=== PATIENT | male | born 1980 | race Caucasian/White ===

== ENCOUNTER → 2017-08-21 | Outpatient (CLI) | payer BC, OTHER ==
[~2017-08-21] MED LIST: CYCL10TA45 PO; DEXL60CA5 PO; HYDR-757 PO; HYDR1CAP2 PO; HYDR1TAB PO; IBP600T1; NAPR550T PO; ONDAN4ODT PO; PANT40TA2 PO; SUCR1TAB PO
--- NOTE | 2017-08-21 07:45 | Diagnostic Imaging Report ---
PROCEDURE: US Gallbladder. TECHNIQUE: Multiple real-time grayscale images were obtained over the right upper quadrant in various projections. INDICATION: Right upper quadrant pain. FINDINGS: Liver appears normal. Bile ducts are not dilated. Gallbladder appears normal. Common bile duct measures 4 mm. Portal and hepatic vein are patent. Pancreas is not well seen. Right kidney is visualized and normal. There is no ascites. IMPRESSION: Normal right upper quadrant ultrasound. Dictated by: Dictated on workstation # [id number]
== END ==
LOC: RAD 06:54
PROVIDERS: ATTEND Nurse Practitioner Family
DX: R10.11 Right upper quadrant pain (principal)
CPT/HCPCS: 76705

== ENCOUNTER → 2017-08-30 | Outpatient (CLI) | payer OTHER ==
[~2017-08-30] MED LIST changes: +IOHEXOL 350 MG/ML 100 ML (OMNIPAQUE 350) VIAL IV ONE; +NS 100 ML (IVPB) BAG IV ONE
[2017-08-30 15:33] LABS: ALANINE AMINOTRANSFERASE 43 U/L (0-55); ALBUMIN 4.2 GM/DL (3.2-4.5); ANION GAP 9 MMOL/L (5-14); ASPARTATE AMINO TRANSFERASE 28 U/L (5-34); BILIRUBIN,TOTAL 0.7 MG/DL (0.1-1.0); BLOOD UREA NITROGEN 9 MG/DL (7-18); BUN/CREATININE RATIO 10; CALCIUM 8.8 MG/DL (8.5-10.1); CARBON DIOXIDE 26 MMOL/L (21-32); CHLORIDE 104 MMOL/L (98-107); CREATININE SERUM 0.89 MG/DL (0.60-1.30); GFR ESTIMATED > 60; GLUCOSE 148 MG/DL (70-105); POTASSIUM 3.9 MMOL/L (3.6-5.0); SODIUM 139 MMOL/L (135-145); TOTAL PROTEIN 7.1 GM/DL (6.4-8.2)
--- NOTE | 2017-08-30 15:51 | Diagnostic Imaging Report ---
PROCEDURE: CT abdomen and pelvis with contrast, rule out appendicitis. TECHNIQUE: Multiple contiguous axial images were obtained through the abdomen and pelvis after the administration of intravenous contrast. INDICATION: Right-sided abdominal pain. FINDINGS: The appendix is well visualized. There is a long appendix present on the right which does extend from the right lower quadrant medially and inferiorly into the pelvis. There is no evidence of appendicolith. Appendix is not edematous. There is no periappendiceal edema. There are no abscesses. There is no free air or free fluid. The colon shows normal stool and gas pattern throughout. The stomach and small bowel are not distended. There is no small bowel wall thickening. Bladder appears normal. There are no pelvic masses. The ureters are not dilated. The kidneys show symmetrical nephrogram effect without hydronephrosis. There are no renal calculi or masses. No perinephric edema. The adrenal glands are normal. The liver appears normal. Gallbladder and bile ducts are normal. The pancreas is normal. The spleen is normal. The lung bases are clear. There is good opacification of the aorta and abdominal vessels which are normal. IMPRESSION: 1. Patient does show a very long wandering appendix though the appendix appears normal throughout its course. 2. No evidence of inflammatory bowel changes. 3. Kidneys, ureter and bladder appear normal. Dictated by: Dictated on workstation # [id number]
== END ==
LOC: RAD 14:40
PROVIDERS: ATTEND Nurse Practitioner Family
DX: R10.11 Right upper quadrant pain (principal); R10.12 Left upper quadrant pain
CPT/HCPCS: 36415; 74177; 80053

== ENCOUNTER → 2017-09-16 | Outpatient (CLI) | payer OTHER ==
[~2017-09-16] MED LIST changes: +CATHETER FLUSH 10 ML SYR IV PRN; -IOHEXOL 350 MG/ML 100 ML (OMNIPAQUE 350) VIAL IV ONE; -NS 100 ML (IVPB) BAG IV ONE
--- NOTE | 2017-09-16 12:12 | Diagnostic Imaging Report ---
EXAMINATION: HIDA with EF measurements Indication: Abdominal pain TECHNIQUE: After the intravenous administration of 5.2 mCi of Tc 99m Choletec, imaging over the abdomen was obtained. This was followed by administration of Ensure orally to stimulate intrinsic CCK secretion, followed by continued imaging with ejection fraction measured. FINDINGS: There is homogeneous uptake in the liver with prompt bile duct and gallbladder filling seen. Bowel activity is seen at 30 minutes. Based on further imaging and gallbladder area of interest activity measurements after the administration of Ensure, the gallbladder ejection fraction is estimated at 87%. IMPRESSION: 1. Normal hepatobiliary uptake and Gallbladder filling. 2. Normal gallbladder ejection fraction. Dictated by: Dictated on workstation # [id number]
== END ==
LOC: CARD 09:32
PROVIDERS: ATTEND Surgery
DX: R10.11 Right upper quadrant pain (principal)
CPT/HCPCS: 78227

== ENCOUNTER 2017-09-20 10:11 | Outpatient (CLI) | payer OTHER ==
[~2017-09-20] VITALS: Ht 188 cm; Wt 90.7 kg
[~2017-09-20 10:11] MED LIST changes: -CATHETER FLUSH 10 ML SYR IV PRN
== END 2017-09-20 13:38 ==
LOC: PREOP 10:11
PROVIDERS: ATTEND Surgery
DX: Z01.818 Encounter for other preprocedural examination (principal); K36 Other appendicitis

== ENCOUNTER 2017-09-26 09:46 | Day surgery (SDC) | payer OTHER ==
[~2017-09-26] VITALS: Ht 188 cm; Wt 90.7 kg
--- OUTSIDE RECORDS SUMMARY | 2017-09-26 09:49 | XMS REPORT | Clinical Summary ---
Author Author [facility] Organization [facility] Address Unknown Phone Unavailable Care Team Providers Care Transit Planning Manager Name Role Phone PCP Unavailable Source Comments Some departments are not documenting in the electronic medical record. If you do not see the information that you expected, contact Release of Information in the Health Information Management department at [phone] for further assistance in locating additional records.[facility] Allergies Active Allergy Reactions Severity Noted Date Comments Codeine NAUSEA AND VOMITING 08/05/2013 Current Medications Prescription Sig. Disp. Refills Start End Date Status Date DEXLANSOPRAZOLE (DEXILANT Take by mouth daily. Active PO) sucralfate (CARAFATE) 1 Take 1 g by mouth every 6 Active gram tablet hours. 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 08/05/2013 Overview: Diagnosed november 2011 Family History Medical History Relation Name Comments GI Cancer Paternal Aunt GI Cancer Paternal Grandmother Relation Name Status Comments Paternal Aunt Paternal Grandmother Social History Tobacco Use Types Packs/Day Years Used Date Current Some Day Smoker Smokeless Tobacco: Chew Current User Alcohol Use Drinks/Week oz/Week Comments Yes Sex Assigned at Date Recorded Not on file Last Filed Vital Signs Vital Sign Reading Time Taken Blood Pressure 131/92 08/05/2013 9:54 AM [facility] Pulse 75 08/05/2013 9:54 AM [facility] Temperature 36.2 C (97.2 F) 08/05/2013 9:54 AM [facility] Respiratory Rate 17 08/05/2013 9:54 AM [facility] Oxygen Saturation - - Inhaled Oxygen - - Concentration Weight 90.7 kg (200 lb) 08/05/2013 9:54 AM [facility] Height 188 cm (6' 2") 08/05/2013 9:54 AM [facility] Body Mass Index 25.68 08/05/2013 9:54 AM [facility] Plan of Treatment Health Maintenance Due Date Last Done Comments PHYSICAL (COMPREHENSIVE) 1986 EXAM PERTUSSIS VACCINE 1990 TETANUS VACCINE 1996 INFLUENZA VACCINE 04/30/2017 Results Not on filefrom Last 3 Months
--- OUTSIDE RECORDS SUMMARY | 2017-09-26 09:50 | XMS REPORT | Continuity of Care Document ---
Author Author [facility] Organization [facility] Address Unknown Phone Unavailable Allergies Active Description Code Type Severity Reaction Onset Reported/Identified Relationship to Patient Clinical Status Yes codeine [id number] Drug Allergy Mild N/A 07/11/2009 Yes No Known Drug Allergies [id number] Drug Allergy Unknown N/A 02/08/2016 Medications There is no data. Problems Date Dx Coded Attending Type Code Diagnosis Diagnosed By 03/19/2011 Ot 845.10 SPRAIN OF FOOT NOS 03/19/2011 Ot 959.7 LOWER LEG INJURY NOS 03/19/2011 Ot E000.8 OTHER EXTERNAL CAUSE STATUS 03/19/2011 Ot E001.0 ACTIVITIES INVOLVING WALKING, MARCHING A 03/19/2011 Ot E849.0 ACCIDENT IN HOME 03/19/2011 Ot E927.0 OVEREXERTION FROM SUDDEN STRENUOUS MOVEM 12/05/2012 Ot 530.11 REFLUX ESOPHAGITIS 12/05/2012 Ot 535.40 OTH SPECIFIED GASTRITIS,W/O MENTION OF H 12/05/2012 Ot 553.3 DIAPHRAGMATIC HERNIA 01/18/2013 Ot 558.9 NONINF GASTROENTERIT NEC 01/18/2013 Ot 787.91 DIARRHEA 11/08/2013 [facility] NURSE Ot 724.5 BACKACHE NOS 11/08/2013 [facility] NURSE Ot 789.09 ABDOMINAL PAIN, OTHER SPECIFIED SITE 08/29/2015 Ot 780.4 08/29/2015 Ot V70.0 08/29/2015 Ot 787.03 08/29/2015 Ot V72.84 08/29/2015 Ot 787.03 08/29/2015 Ot 790.29 08/29/2015 Ot 794.5 08/29/2015 MIGUEL GROVER MD Ot 780.79 08/29/2015 MIGUEL GROVER MD Ot 787.91 08/29/2015 MIGUEL GROVER MD Ot 789.00 08/29/2015 MIGUEL GROVER MD Ot 794.5 08/29/2015 BKANASTACIA AUCTIONEER TOBACCO Ot 530.85 08/29/2015 BKANASTACIA AUCTIONEER TOBACCO Ot 780.4 08/29/2015 BKANASTACIA AUCTIONEER TOBACCO Ot 780.79 08/29/2015 BOURGEOISANASTACIA AUCTIONEER TOBACCO Ot 794.5 08/29/2015 REILLY VANG, MIGUEL A Ot 794.5 08/29/2015 ENOC VANG, MARIBETH Ot 530.11 08/29/2015 ENOC VANG, MARIBETH Ot 535.50 08/29/2015 ENOC VANG, MARIBETH Ot 553.3 08/29/2015 ENOC VANG, MARIBETH Ot V72.84 08/31/2015 [facility] NURSE Ot R10.9 08/31/2015 [facility] NURSE Ot R50.9 08/31/2015 [facility] NURSE Ot R74.8 09/15/2015 [facility] NURSE Ot R10.9 09/15/2015 [facility] NURSE Ot R50.9 09/15/2015 [facility] NURSE Ot R74.8 01/30/2016 JOSEPH VANG, GETACHEW T Ot R10.31 RIGHT LOWER QUADRANT PAIN 01/30/2016 GETACHEW RUIZ MD T Ot R10.31 RIGHT LOWER QUADRANT PAIN 02/08/2016 MARIBETH STUBBS MD Ot Z01.818 ENCOUNTER FOR OTHER PREPROCEDURAL EXAMIN 02/08/2016 MARIBETH STUBBS MD Ot Z87.19 PERSONAL HISTORY OF OTHER DISEASES OF 02/09/2016 MARIBETH STUBBS MD Ot Z01.818 ENCOUNTER FOR OTHER PREPROCEDURAL EXAMIN 02/09/2016 MARIBETH STUBBS MD Ot Z87.19 PERSONAL HISTORY OF OTHER DISEASES OF 02/15/2016 MARIBETH STUBBS MD Ot K21.0 GASTRO-ESOPHAGEAL REFLUX DISEASE WITH ES 02/15/2016 MARIBETH STUBBS MD Ot K29.70 GASTRITIS, UNSPECIFIED, WITHOUT BLEEDING 02/15/2016 MARIBETH STUBBS MD Ot K44.9 DIAPHRAGMATIC HERNIA WITHOUT OBSTRUCTION 02/16/2016 MARIBETH STUBBS MD Ot K21.0 GASTRO-ESOPHAGEAL REFLUX DISEASE WITH ES 02/16/2016 ENOC VANG, MARIBETH Ot K29.70 GASTRITIS, UNSPECIFIED, WITHOUT BLEEDING 02/16/2016 MARIBETH STUBBS MD Ot K44.9 DIAPHRAGMATIC HERNIA WITHOUT OBSTRUCTION 05/09/2016 Ot 780.4 DIZZINESS AND GIDDINESS 05/09/2016 Ot V70.0 ROUTINE MEDICAL EXAM 05/09/2016 Ot 787.03 VOMITING ALONE 05/09/2016 Ot V72.84 EXAM PRE- OPERATIVE NOS 05/09/2016 Ot 787.03 VOMITING ALONE 05/09/2016 Ot 790.29 OTHER ABNORMAL GLUCOSE 05/09/2016 Ot 794.5 ABN THYROID FUNCT STUDY 05/09/2016 REILLY VANG, MIGUEL Reed Ot 780.79 OTH MALAISE FATIGUE 05/09/2016 MIGUEL GROVER MD Ot 787.91 DIARRHEA 05/09/2016 MIGUEL GROVER MD Ot 789.00 ABDOMINAL PAIN, UNSPECIFIED SITE 05/09/2016 MIGUEL GROVER MD Ot 794.5 ABN THYROID FUNCT STUDY 05/09/2016 ANASTACIA BOURGEOIS AUCTIONEER TOBACCO Ot 530.85 MAY'S ESOPHAGUS 05/09/2016 ANASTACIA BOURGEOIS AUCTIONEER TOBACCO Ot 780.4 DIZZINESS AND GIDDINESS 05/09/2016 ANASTACIA BOURGEOIS AUCTIONEER TOBACCO Ot 780.79 OTH MALAISE FATIGUE 05/09/2016 ANASTACIA BOURGEOIS AUCTIONEER TOBACCO Ot 794.5 ABN THYROID FUNCT STUDY 05/09/2016 MIGUEL GROVER MD Ot 794.5 ABN THYROID FUNCT STUDY 05/09/2016 MARIBETH STUBBS MD Ot 530.11 REFLUX ESOPHAGITIS 05/09/2016 ENOC VANG, MARIBETH Ot 535.50 UNSP GASTRITIS GASTRODUODENITIS W/O ME 05/09/2016 ENOC VANG, MARIBETH Ot 553.3 DIAPHRAGMATIC HERNIA 05/09/2016 ENOC VANG, MARIBETH Ot V72.84 EXAM PRE-OPERATIVE NOS 05/09/2016 [facility] NURSE Ot R10.9 UNSPECIFIED ABDOMINAL PAIN 05/09/2016 [facility] NURSE Ot R50.9 FEVER, UNSPECIFIED 05/09/2016 [facility] NURSE Ot R74.8 ABNORMAL LEVELS OF OTHER SERUM ENZYMES 05/10/2016 [facility] NURSE Ot R00.2 PALPITATIONS 05/10/2016 [facility] NURSE Ot R07.9 CHEST PAIN, UNSPECIFIED 05/11/2016 [facility] NURSE Ot R00.2 PALPITATIONS 05/11/2016 BAS[facility] NURSE Ot R07.9 CHEST PAIN, UNSPECIFIED 05/25/2016 BAS[facility] NURSE Ot R00.2 PALPITATIONS 05/25/2016 [facility] NURSE Ot R07.9 CHEST PAIN, UNSPECIFIED 06/14/2016 [facility] NURSE Ot G47.10 HYPERSOMNIA, UNSPECIFIED 06/19/2016 [facility] NURSE Ot G47.10 HYPERSOMNIA, UNSPECIFIED 08/20/2017 Ot 787.03 VOMITING ALONE 08/20/2017 Ot V72.84 EXAM PRE- OPERATIVE NOS 08/20/2017 Ot 787.03 VOMITING ALONE 08/20/2017 Ot 790.29 OTHER ABNORMAL GLUCOSE 08/20/2017 Ot 794.5 ABN THYROID FUNCT STUDY 08/20/2017 MIGUEL GROVER MD Ot 780.79 OTH MALAISE FATIGUE 08/20/2017 MIGUEL GROVER MD Ot 787.91 DIARRHEA 08/20/2017 MIGUEL GROVER MD Ot 789.00 ABDOMINAL PAIN, UNSPECIFIED SITE 08/20/2017 MIGUEL GROVER MD Ot 794.5 ABN THYROID FUNCT STUDY 08/20/2017 ANASTACIA BOURGEOIS AUCTIONEER TOBACCO Ot 530.85 MAY'S ESOPHAGUS 08/20/2017 ANASTACIA BOURGEOIS AUCTIONEER TOBACCO Ot 780.4 DIZZINESS AND GIDDINESS 08/20/2017 ANASTACIA BOURGEOIS AUCTIONEER TOBACCO Ot 780.79 OTH MALAISE FATIGUE 08/20/2017 ANASTACIA BOURGEOIS AUCTIONEER TOBACCO Ot 794.5 ABN THYROID FUNCT STUDY 08/20/2017 MIGUEL GROVER MD Ot 794.5 ABN THYROID FUNCT STUDY 08/20/2017 MARIBETH STUBBS MD Ot 530.11 REFLUX ESOPHAGITIS 08/20/2017 MARIBETH STUBBS MD Ot 535.50 UNSP GASTRITIS GASTRODUODENITIS W/O ME 08/20/2017 MARIBETH STUBBS MD Ot 553.3 DIAPHRAGMATIC HERNIA 08/20/2017 MARIBETH STUBBS MD Ot V72.84 EXAM PRE-OPERATIVE NOS 08/20/2017 MYLES BASIA Sellers [facility] NURSE Ot R10.9 UNSPECIFIED ABDOMINAL PAIN 08/20/2017 MYLES [facility] NURSE Ot R50.9 FEVER, UNSPECIFIED 08/20/2017 MYLES [facility] NURSE Ot R74.8 ABNORMAL LEVELS OF OTHER SERUM ENZYMES 08/20/2017 MYLES [facility] NURSE Ot R00.2 PALPITATIONS 08/20/2017 MYLES BASIA [facility] NURSE Ot R07.9 CHEST PAIN, UNSPECIFIED 08/20/2017 Ot 787.03 VOMITING ALONE 08/20/2017 Ot V72.84 EXAM PRE- OPERATIVE NOS 08/20/2017 Ot 787.03 VOMITING ALONE 08/20/2017 Ot 790.29 OTHER ABNORMAL GLUCOSE 08/20/2017 Ot 794.5 ABN THYROID FUNCT STUDY 08/20/2017 REILLY VANG, MIGUEL Reed Ot 780.79 OTH MALAISE FATIGUE 08/20/2017 REILLY VANG, MIGUEL Reed Ot 787.91 DIARRHEA 08/20/2017 MIGUEL GROVER MD A Ot 789.00 ABDOMINAL PAIN, UNSPECIFIED SITE 08/20/2017 MIGUEL GROVER MD Ot 794.5 ABN THYROID FUNCT STUDY 08/20/2017 ANASTACIA BOURGEOIS AUCTIONEER TOBACCO Ot 530.85 MAY'S ESOPHAGUS 08/20/2017 ANASTACIA BOURGEOIS AUCTIONEER TOBACCO Ot 780.4 DIZZINESS AND GIDDINESS 08/20/2017 ANASTACIA BOURGEOIS AUCTIONEER TOBACCO Ot 780.79 OTH MALAISE FATIGUE 08/20/2017 ANASTACIA BOURGEOIS AUCTIONEER TOBACCO Ot 794.5 ABN THYROID FUNCT STUDY 08/20/2017 MIGUEL GROVER MD Ot 794.5 ABN THYROID FUNCT STUDY 08/20/2017 ENOC VANG, MARIBETH Ot 530.11 REFLUX ESOPHAGITIS 08/20/2017 ENOC VANG, MARIBETH Ot 535.50 UNSP GASTRITIS GASTRODUODENITIS W/O ME 08/20/2017 ENOC VANG, MARIBETH Ot 553.3 DIAPHRAGMATIC HERNIA 08/20/2017 ENOC VANG, MARIBETH Ot V72.84 EXAM PRE-OPERATIVE NOS 08/20/2017 [facility] NURSE Ot R10.9 UNSPECIFIED ABDOMINAL PAIN 08/20/2017 BASIA [facility] NURSE Ot R50.9 FEVER, UNSPECIFIED 08/20/2017 BASIA BU[facility] NURSE Ot R74.8 ABNORMAL LEVELS OF OTHER SERUM ENZYMES 08/20/2017 BASIA [facility] NURSE Ot R00.2 PALPITATIONS 08/20/2017 BASIA [facility] NURSE Ot R07.9 CHEST PAIN, UNSPECIFIED 08/23/2017 BAS[facility] NURSE Ot R10.11 RIGHT UPPER QUADRANT PAIN 08/30/2017 BASIA [facility] NURSE Ot R10.11 RIGHT UPPER QUADRANT PAIN 09/12/2017 BASIA BU[facility] NURSE Ot R10.11 RIGHT UPPER QUADRANT PAIN 09/16/2017 Ot 787.03 VOMITING ALONE 09/16/2017 Ot V72.84 EXAM PRE- OPERATIVE NOS 09/16/2017 Ot 787.03 VOMITING ALONE 09/16/2017 Ot 790.29 OTHER ABNORMAL GLUCOSE 09/16/2017 Ot 794.5 ABN THYROID FUNCT STUDY 09/16/2017 REILLY VANG, MIGUEL Reed Ot 780.79 OTH MALAISE FATIGUE 09/16/2017 REILLY VANG, MIGUEL Reed Ot 787.91 DIARRHEA 09/16/2017 MIGUEL GROVER MD Ot 789.00 ABDOMINAL PAIN, UNSPECIFIED SITE 09/16/2017 MIUGEL GROVER MD Ot 794.5 ABN THYROID FUNCT STUDY 09/16/2017 ANASTACIA BOURGEOIS AUCTIONEER TOBACCO Ot 530.85 MAY'S ESOPHAGUS 09/16/2017 ANASTACIA BOURGEOIS AUCTIONEER TOBACCO Ot 780.4 DIZZINESS AND GIDDINESS 09/16/2017 ANASTACIA BOURGEOIS AUCTIONEER TOBACCO Ot 780.79 OTH MALAISE FATIGUE 09/16/2017 ANASTACIA BOURGEOIS AUCTIONEER TOBACCO Ot 794.5 ABN THYROID FUNCT STUDY 09/16/2017 MIGUEL GROVER MD Ot 794.5 ABN THYROID FUNCT STUDY 09/16/2017 MARIBETH STUBBS MD Ot 530.11 REFLUX ESOPHAGITIS 09/16/2017 MARIBETH STUBBS MD Ot 535.50 UNSP GASTRITIS GASTRODUODENITIS W/O ME 09/16/2017 MARIBETH STUBBS MD Ot 553.3 DIAPHRAGMATIC HERNIA 09/16/2017 MARIBETH STUBBS MD Ot V72.84 EXAM PRE-OPERATIVE NOS 09/16/2017 [facility] NURSE Ot R10.9 UNSPECIFIED ABDOMINAL PAIN 09/16/2017 BASIA [facility] NURSE Ot R50.9 FEVER, UNSPECIFIED 09/16/2017 BASIA [facility] NURSE Ot R74.8 ABNORMAL LEVELS OF OTHER SERUM ENZYMES 09/16/2017 BAS[facility] NURSE Ot R00.2 PALPITATIONS 09/16/2017 BASIA [facility] NURSE Ot R07.9 CHEST PAIN, UNSPECIFIED Procedures There is no data. Results Test Result Range Automated blood complete blood count (hemogram) panel - 05/09/16 12:07 Blood leukocytes automated count (number/volume) 4.4 10*3/uL 4.3-11.0 Blood erythrocytes automated count (number/volume) 5.16 10*6/uL 4.35-5.85 Venous blood hemoglobin measurement (mass/volume) 16.3 g/dL 13.3-17.7 Blood hematocrit (volume fraction) 46 % 40-54 Automated erythrocyte mean corpuscular volume 89 [foz_us] 80-99 Automated erythrocyte mean corpuscular hemoglobin (mass per erythrocyte) 32 pg 25-34 Automated erythrocyte mean corpuscular hemoglobin concentration measurement ( mass/volume) 35 g/dL 32-36 Automated erythrocyte distribution width ratio 13.3 % 10.0-14.5 Automated blood platelet count (count/volume) 164 10*3/uL 130-400 Automated blood platelet mean volume measurement 10.0 [foz_us] 7.4-10.4 Comprehensive metabolic panel - 05/09/16 12:07 Serum or plasma sodium measurement (moles/volume) 140 mmol/L 135-145 Serum or plasma potassium measurement (moles/volume) 4.6 mmol/L 3.6-5.0 Serum or plasma chloride measurement (moles/volume) 103 mmol/L 98-107 Carbon dioxide 29 mmol/L 21-32 Serum or plasma anion gap determination (moles/volume) 8 mmol/L 5-14 Serum or plasma urea nitrogen measurement (mass/volume) 9 mg/dL 7-18 Serum or plasma creatinine measurement (mass/volume) 0.90 mg/dL 0.60-1.30 Serum or plasma urea nitrogen/creatinine mass ratio 10 NRG Serum or plasma creatinine measurement with calculation of estimated glomerular filtration rate > NRG Serum or plasma glucose measurement (mass/volume) 86 mg/dL 70-105 Serum or plasma calcium measurement (mass/volume) 9.2 mg/dL 8.5-10.1 Serum or plasma total bilirubin measurement (mass/volume) 0.7 mg/dL 0.1-1.0 Serum or plasma alkaline phosphatase measurement (enzymatic activity/volume) 57 U/L 40-136 Serum or plasma aspartate aminotransferase measurement (enzymatic activity/ volume) 24 U/L 5-34 Serum or plasma alanine aminotransferase measurement (enzymatic activity/volume ) 35 U/L 0-55 Serum or plasma protein measurement (mass/volume) 7.2 g/dL 6.4-8.2 Serum or plasma albumin measurement (mass/volume) 4.7 g/dL 3.2-4.5 THYROID STIMULATING HORMONE - 05/09/16 12:07 THYROID STIMULATING HORMONE 1.86 u[iU]/mL 0.35-4.94 Comprehensive metabolic panel - 08/30/17 14:59 Serum or plasma sodium measurement (moles/volume) 139 mmol/L 135-145 Serum or plasma potassium measurement (moles/volume) 3.9 mmol/L 3.6-5.0 Serum or plasma chloride measurement (moles/volume) 104 mmol/L 98-107 Carbon dioxide 26 mmol/L 21-32 Serum or plasma anion gap determination (moles/volume) 9 mmol/L 5-14 Serum or plasma urea nitrogen measurement (mass/volume) 9 mg/dL 7-18 Serum or plasma creatinine measurement (mass/volume) 0.89 mg/dL 0.60-1.30 Serum or plasma urea nitrogen/creatinine mass ratio 10 NRG Serum or plasma creatinine measurement with calculation of estimated glomerular filtration rate > NRG Serum or plasma glucose measurement (mass/volume) 148 mg/dL 70-105 Serum or plasma calcium measurement (mass/volume) 8.8 mg/dL 8.5-10.1 Serum or plasma total bilirubin measurement (mass/volume) 0.7 mg/dL 0.1-1.0 Serum or plasma alkaline phosphatase measurement (enzymatic activity/volume) 54 U/L 40-136 Serum or plasma aspartate aminotransferase measurement (enzymatic activity/ volume) 28 U/L 5-34 Serum or plasma alanine aminotransferase measurement (enzymatic activity/volume ) 43 U/L 0-55 Serum or plasma protein measurement (mass/volume) 7.1 g/dL 6.4-8.2 Serum or plasma albumin measurement (mass/volume) 4.2 g/dL 3.2-4.5 Encounters ACCT No. Visit Date/Time Discharge Status Pt. Type Provider Facility Loc./Unit Complaint [id number] 09/16/2017 09:32:00 09/16/2017 23:59:59 CLS Outpatient MARIBETH STUBBS MD [facility] CARD AMY PAIN [id number] 08/30/2017 14:40:00 08/30/2017 23:59:59 CLS Outpatient BASIA BUENO APRN [facility] RAD RT UPPER, RT LOWER QUADRANT PAIN [id number] 08/21/2017 06:54:00 08/21/2017 23:59:59 CLS Outpatient BASIA BUENO APRN [facility] RAD RUQ PAIN [id number] 06/13/2016 19:55:00 06/14/2016 05:10:00 DIS Outpatient BASIA BUENO APRN [facility] SLEEP ALAN,[place] [id number] 05/09/2016 11:47:00 05/09/2016 23:59:59 CLS Outpatient BASIA BUENO APRN [facility] CARD CHEST PAIN, PALPITATIONS [id number] 02/15/2016 09:00:00 02/15/2016 11:05:00 [facility]HISTORY OF POL[facility]PS [id number] 02/08/2016 08:16:00 02/08/2016 10:06:00 DIS Outpatient MARIBETH STUBBS MD [facility] PREOP ABDOMINAL PAIN;HISTORY OF POLYPS [id number] 01/29/2016 21:51:00 01/30/2016 00:28:00 DIS Emergency GETACHEW RUIZ MD [facility] ER ABD PAIN RT SIDE [id number] 08/29/2015 07:31:00 08/29/2015 23:59:59 CLS Outpatient BASIA BUENO APRN [facility] RAD ELELVATED LABS, FEVERS [id number] 12/16/2013 08:11:00 12/16/2013 23:59:59 CLS Outpatient MARIBETH STUBBS MD [facility] GERD [id number] 12/14/2013 07:46:00 12/14/2013 23:59:59 CLS Outpatient MARIBETH STUBBS MD [facility] PREOP GERD [id number] 11/08/2013 20:28:00 11/08/2013 23:00:00 DIS Emergency [facility] NURSE [facility] ER POSS KIDNEY STONE [id number] 05/20/2013 08:46:00 05/20/2013 23:59:59 CLS Outpatient [id number] 02/25/2013 14:14:00 02/25/2013 23:59:59 CLS Outpatient MIGUEL GROVER MD [facility] LAB ABN THYROID LABS [id number] 01/27/2013 12:57:00 01/27/2013 23:59:59 CLS Outpatient ANASTACIA BOURGEOIS [facility] LAB MAY'S ESOPHAGUS ,FATIQUE,DIZZINESS,ABNORM BS [id number] 01/26/2013 09:19:00 01/26/2013 23:59:59 CLS Outpatient MIGUEL GROVER MD [facility] RAD ABN THYROID LABS, FATIGUE,ABD PAIN,DIARRHEA [id number] 09/26/2017 10:00:00 PEN Preadmit MARIBETH STUBBS MD [facility] CHRONIC APPENDICITIS [id number] 01/21/2013 14:55:00 Document Registration [id number] 01/18/2013 09:02:00 Document Registration [id number] 12/05/2012 09:53:00 Document Registration [id number] 12/03/2012 07:23:00 Document Registration [id number] 10/20/2012 10:59:00 Document Registration [id number] 02/13/2012 08:38:00 Document Registration [id number] 03/19/2011 10:46:00 Document Registration
--- NOTE | 2017-09-26 09:56 | Conscious Sedation/ASA ---
Conscious Sedation Pre-Proced Time Reviewed: 09:55 ASA Class: 2 Airway Mallampati Classification: ([place] appropriate class) I. II. III, IV Lungs Heart ASA score ASA 1: a normal healthy patient ASA 2: a patient with a mild systemic disease (mid diabetes, controlled hypertension, obesity ASA 3: a patient with a severe systemic disease that limits activity (angina , COPD, prior Myocardial infarction) ASA 4: a patient with an incapacitating disease that is a constant threat to life (CHF, renal failure) ASA 5: a moribund patient not expected to survive 24 hrs. (ruptured aneurysm) ASA 6: a declared brain patient whose organs are being harvested. For emergent operations, add the letter E after the classification Grade 2 Sedation Plan: Analgesia, Amnesia, Plan communicated to team members, Discussed options with patient/fam, Discussed risks with patient/fam Note The patient is an appropriate candidate to undergo the planned procedure, sedation, and anesthesia. The patient immediately re-assessed prior to indication. MARIBETH STUBBS MD Sep 26, 2017 9:56 am
--- NOTE | 2017-09-26 09:58 | Progress Note-Pre Operative ---
Pre-Operative Progress Note H&P Reviewed The H&P was reviewed, patient examined and no changes noted. Date Seen by Provider: Sep 26, 2017 Time Seen by Provider: 09:55 Date H&P Reviewed: Sep 26, 2017 Time H&P Reviewed: 09:55 Pre-Operative Diagnosis: symptomatic chronic appendendicitis. MARIBETH STUBBS MD Sep 26, 2017 9:58 am
[2017-09-26] MEDS ORDERED: HYDROcodone/APAP 5 MG/325 MG (LORTAB) TAB PO ONE (10:00)
[2017-09-26] MEDS ORDERED: ACETAMINOPHEN 325 MG TABLET/CAPLET (TYLENOL) PO PRN (10:00)
[2017-09-26] MEDS ORDERED: morphine INJ 10 MG/ML 1ML (SYR OR VIAL) IVP PRN (10:00)
[2017-09-26] MEDS ORDERED: ONDANSETRON 4 MG/2 ML (SDV) Z0FRAN IVP PRN ×2 (10:00→14:15)
[2017-09-26 10:36] LABS: BASOPHILS % (AUTO) 1 % (0-10); EOSINOPHILS # (AUTO) 0.2 10^3/uL (0.0-0.3); EOSINOPHILS % (AUTO) 3 % (0-10); HEMATOCRIT 42 % (40-54); HEMOGLOBIN 15.2 G/DL (13.3-17.7); LYMPHOCYTES # (AUTO) 1.6 X 10^3 (1.0-4.0); LYMPHOCYTES % (AUTO) 28 % (12-44); MEAN CORPUSCULAR HEMOGLOBIN 32 PG (25-34); MEAN CORPUSCULAR HGB CONC 36 G/DL (32-36); MEAN CORPUSCULAR VOLUME 88 FL (80-99); MEAN PLATELET VOLUME 10.2 FL (7.4-10.4); MONOCYTES # (AUTO) 0.4 X 10^3 (0.0-1.0); MONOCYTES % (AUTO) 8 % (0-12); NEUTROPHILS # (AUTO) 3.5 X 10^3 (1.8-7.8); NEUTROPHILS % (AUTO) 61 % (42-75); PLATELET COUNT 153 10^3/uL (130-400); RED BLOOD COUNT 4.75 10^6/uL (4.35-5.85); RED CELL DISTRIBUTION WIDTH 12.4 % (10.0-14.5); WHITE BLOOD COUNT 5.7 10^3/uL (4.3-11.0)
[2017-09-26] MEDS ORDERED: ceFAZolin 1,000 MG (ANCEF) VIAL ONE (10:56)
[2017-09-26] MEDS ORDERED: NS (IVPB) 50 ML ONE (10:57)
[2017-09-26 11:00] VITALS: BP 126/88
[2017-09-26] MEDS ORDERED: ceFAZolin 1 GM/NS 50 ML IVPB IV ONE ×2 (11:15)
[2017-09-26] MEDS ORDERED: ONDANSETRON 4 MG/2 ML (SDV) Z0FRAN ONE (11:31)
[2017-09-26] MEDS ORDERED: LIDOCAINE PF 2% 5 ML (XYLOCAINE) VIAL ONE (11:31)
[2017-09-26] MEDS ORDERED: proPOfol 200 MG/20 ML (DIPRIVAN) VIAL IV ONE (11:31)
[2017-09-26] MEDS ORDERED: ROCURONIUM 50 MG/5 ML (ZEMURON) VIAL IV ONE (11:31)
[2017-09-26] MEDS ORDERED: MIDAZOLAM 2 MG/2 ML (VERSED) VIAL ONE (11:32)
[2017-09-26] MEDS ORDERED: fentaNYL INJECTION 100 MCG/2 ML AMP ONE (11:32)
[2017-09-26] MEDS ORDERED: LACTATED RINGERS 1,000 ML IV PRN (12:07)
[2017-09-26] MEDS ORDERED: ceFAZolin INJECTION 1,000 MG in NS (IVPB) 50 ML IV ONE (12:15)
[2017-09-26] MEDS ORDERED: BUP/EPI 0.5% 1:200,000 (MARCAINE) 10ML VIAL IJ ONE (12:28)
[2017-09-26] MEDS ORDERED: SEVOFLURANE (ULTANE) 15 ML INHAL SOLN ONE (13:46)
[2017-09-26] MEDS ORDERED: DEXAMETHASONE 10 MG/ML (DECADRON) 1 ML VIAL ONE (13:52)
[2017-09-26] MEDS ORDERED: HYDROmorphone (DILAUDID) 2 MG/ML VIAL ONE (14:00)
--- NOTE | 2017-09-26 14:00 | Progress Note-Post Operative ---
Post-Operative Progess Note Surgeon (s)/Exercise Physiology Professor (s) Surgeon MARIBETH STUBBS MD Exercise Physiology Professor: charan stearns RO[address] CLEANER Pre-Operative Diagnosis symptomatic chronic appendendicitis. Post-Operative Diagnosis same, mesenteric fat creeping terminal ileum and cecum. Procedure & Operative Findings Date of Procedure 09/26/17 Procedure Performed/Findings diagnostic laparoscopy and appendectomy Anesthesia Type GET Estimated Blood Loss Estimated blood loss (mL): minimal Specimens/Packing Specimens Removed appendix MARIBETH STUBBS MD Sep 26, 2017 2:00 pm
[2017-09-26] MEDS ORDERED: HYDR-3816 PO (14:02)
--- NOTE | 2017-09-26 14:03 | Discharge Inst-Surgical ---
D/C Lap Instructions-ENOC New, Converted, or Re-Newed RX: RX on Chart Follow Up Appt in 2 weeks Activity as tolerated No driving for 24 hours No driving while on pain medications Incentive Spirometry use every 2 hours while awake Regular Diet Symptoms to Report: Fever over 101 degree F, Nausea/Vomiting Infection Signs and Symptoms to report: Increased redness, Foul odor of wound, Increased drainage Bathing instructions: May shower Operative Area Clean/Dry; Keep incision clean/dry If any problems/questions: Contact your physician or go to Emergency Room MARIBETH STUBBS MD Sep 26, 2017 2:03 pm
[2017-09-26] MEDS: morphine INJ 10 MG/ML 1ML (SYR OR VIAL) IVP PRN ×2 (14:07→14:15)
[2017-09-26] MEDS ORDERED: PROMETHAZINE INJ 25 MG/ML (PHENERGAN) AMP IVP PRN (14:15)
[2017-09-26] MEDS ORDERED: MEPERIDINE (DEMEROL) INJ 50 MG/ML IVP PRN (14:15)
[2017-09-26] MEDS: HYDROmorphone (DILAUDID) 2 MG/ML VIAL IVP PRN ×4 (14:25→14:49)
[2017-09-26 15:00] VITALS: BP 149/103
[2017-09-26 15:30] VITALS: BP 125/105
[2017-09-26 16:00] VITALS: BP 135/94
[2017-09-26] MEDS ORDERED: HYDROcodone/APAP 5 MG/325 MG (LORTAB) TAB ONE (16:25)
--- NOTE | 2017-09-26 19:26 | OPERATIVE REPORT ---
DATE OF SERVICE: 09/26/2017 ATTENDING PRIMARY CARE PHYSICIAN: Juliet Sauceda MD PREOPERATIVE DIAGNOSIS: Symptomatic chronic appendicitis. POSTOPERATIVE DIAGNOSES: Symptomatic chronic appendicitis with mesenteric fat creeping of the terminal ileum and cecum more likely consistent with Crohn's disease. No active inflammation. PROCEDURE: Diagnostic laparoscopy and laparoscopic appendectomy. SURGEON: Wong Romeo MD ANESTHESIA: General endotracheal. ESTIMATED BLOOD LOSS: Minimal. FINDINGS: There was a mesenteric fat creeping around the appendix, which was elongated. The mesenteric fat creeping also encompassed what appeared to be the cecum as well as the terminal ileum. There was no active inflammation identified. No Meckel's diverticulum identified. DISPOSITION: The patient tolerated the procedure well. INDICATION FOR PROCEDURE: The patient is a 36-year-old male, who is known to us. He was initially referred over to us for abdominal pain as well as reflux. He had 2 previous EGDs done in the past with the first one done in 11/2012 and again in 11/2013. He was then seen by us again in 2015 for recurrence of abdominal pain as well as reflux. An EGD was performed on 02/15/2016 and found to have reflux esophagitis between class B and C as well as small hiatal hernia approximately 3 cm in size as well as moderate to severe gastritis. Biopsies were negative for H. pylori as well as negative for Fields's esophagus. He has had a 6-month history of right lower abdominal quadrant pain. This pain is intermittent and dull ache in nature. For the past 2 months, this has increased in severity. He does not report any fever nor chills as well as no nausea and no vomiting. He does report occasional episodes of diarrhea. He underwent a gallbladder ultrasound, which did not show any gallstones and HIDA scan, which was also normal. A CT scan was performed, which showed a very long and wandering appendix. DESCRIPTION OF PROCEDURE: The patient was brought to the operating room, laid supine on the table. After adequate IV pain and sedative medications and general endotracheal intubation, the abdomen was prepped and draped in standard surgical fashion. A 0.5% Marcaine with epinephrine was then used to anesthetize the overlying skin in the left upper abdominal quadrant and a skin incision made using a 15 blade. An 0 silk suture was applied to the medial aspect of the incision for traction and a Veress needle inserted with a low opening pressure of 0 mmHg and the abdomen was insufflated to 15 mmHg pressure. The Veress needle removed and a 5 mm Xcel trocar placed followed by a 5 mm 45 degree angle laparoscope visualizing the peritoneal cavity. A four quadrant abdominal exploration was performed. The gallbladder appeared and liver appeared normal. The appendix was identified with increased turgor pressure and there was an adhesion tissue towards the lateral abdominal wall. It did appear consistent with a chronic appendicitis. An incidental finding was mesenteric fat creeping onto the appendix of greater than 50% of the luminal diameter of the appendix. It was decided to proceed with an appendectomy. A window was created through the mesentery using a [place]. The appendix was then stapled and transected at its cecal base using a ANGELI 45 mm stapler with a 2.5 mm thickness load. The mesentery was then stapled and cut with the same stapler with a 2.0 mm thickness reload. The small bowel was ran. There was no Meckel's diverticulum identified. At the terminal ileum, there was mesenteric fat creeping again along the terminal ileum and this appeared to be more consistent with a mild chronic Crohn's disease. There is no active inflammation identified. The remainder of the colon appeared normal as did the rest of the small bowel. The appendix was removed through the 10 mm port site using an EndoCatch bag. The 10 mm port site fascia and peritoneum were then closed under direct visualization using a Miguel-Tolu device and an 0 Vicryl suture. The abdomen was desufflated and the remaining ports removed. All skin incisions were closed using 4-0 Monocryl running subcuticular sutures. Wounds were then cleaned and covered with Dermabond. The patient tolerated the procedure well. We will await the biopsy results. If he does have recurrent symptoms, this may be more consistent with a Crohn's ileitis or mild colitis. At this time, we will recommend a colonoscopy to potentially identify inflammatory lesions of the mucosa as well as biopsy, which is appropriate and a proper identification and classification of an inflammatory bowel disease. We can also direct therapy from that point. Job ID: [id number] DocumentID: [id number] Dictated Date: 09/26/2017 14:15:45 Product Handler Date: 09/26/2017 19:25:36 Dictated By: MD NICK DIEGO
== END 2017-09-26 17:25 | disposition home or self-care (01) ==
LOC: SDC 09:46
PROVIDERS: ATTEND Surgery
DX: K36 Other appendicitis (principal); G43.909 Migraine, unspecified, not intractable, without status migrainosus; F17.220 Nicotine dependence, chewing tobacco, uncomplicated; K21.9 Gastro-esophageal reflux disease without esophagitis
CPT/HCPCS: 36415; 85025; 87081; 88304

== ENCOUNTER 2017-11-27 05:40 | Outpatient (CLI) | payer OTHER ==
[~2017-11-27] VITALS: Ht 188 cm; Wt 90.7 kg
[~2017-11-27 05:40] MED LIST changes: +HYDR-34 PO
== END 2017-11-27 12:05 ==
LOC: PREOP 05:40
PROVIDERS: ATTEND Surgery
DX: Z01.818 Encounter for other preprocedural examination (principal); R10.31 Right lower quadrant pain; R19.7 Diarrhea, unspecified

== ENCOUNTER 2020-01-29 06:30 | Outpatient (CLI) | payer BC ==
[~2020-01-29] VITALS: Ht 188 cm; Wt 93.4 kg
[2020-01-29] MEDS ORDERED: NF-ESOM40C PO (07:46)
[2020-01-29] MEDS ORDERED: CETI10TA21 PO (07:46)
== END 2020-01-29 15:12 ==
LOC: PREOP 06:30
PROVIDERS: ATTEND Surgery
DX: Z01.818 Encounter for other preprocedural examination (principal); Z11.59 Encounter for screening for other viral diseases
CPT/HCPCS: 87635

== ENCOUNTER → 2020-06-01 | Outpatient (CLI) | payer BC ==
[~2020-06-01] MED LIST changes: +CETI10TA21 PO; +NF-ESOM40C PO
== END ==
LOC: LABNPT 08:09
PROVIDERS: ATTEND Family Medicine
DX: R05 Cough (principal); R09.81 Nasal congestion; Z20.828 Contact with and (suspected) exposure to other viral communicable diseases
CPT/HCPCS: 87635

== ENCOUNTER 2022-08-04 12:13 | Emergency (ER) | payer BC ==
[~2022-08-04] VITALS: Ht 187 cm; Wt 86.0 kg
[~2022-08-04 12:13] MED LIST changes: -CETI10TA21 PO; +CETI10TA49 PO
[2022-08-04] MEDS ORDERED: L.E.T. SOLUTION 3 ML SYR TOP ONE (12:45)
[2022-08-04] MEDS ORDERED: TETANUS,DIPTH,PERTUSS P/F (BOOSTRIX) 0.5 ML VIAL IM ONE ×2 (12:51→13:00)
--- NOTE | 2022-08-04 13:10 | ED Head Injury ---
General Chief Complaint: Laceration Stated Complaint: HEAD LAC Nursing Triage Note: PT AMB TO RM 3 PT CO OF LAC TO TOP OF HEAD FROM ARM OF AUTOMATIC SKEET THROWER. PT DENIESS LOC, PT HAS 2-3CM LAC TO R TOP OF HEAD. AREA CLEANED W NS AND CLORHEXADINE Source: patient Exam Limitations: no limitations History of Present Illness Date Seen by Provider: Aug 04, 2022 Time Seen by Provider: 12:20 Initial Comments Patient is a 41-year-old male who presents to the emergency department after sustaining a laceration to his right scalp when an automatic skeet throwing machine malfunctioned and the arm struck his head. He denies any loss of consciousness states he has felt woozy since the accident occurred. Direct pressure was applied to the wound and bleeding was controlled. Patient is unsure of the date of his last tetanus immunization. Patient denies any vision loss, dizziness, syncope, focal weakness/numbness. Allergies and Home Medications Allergies Coded Allergies: No Known Drug Allergies (Unverified , 02/08/16) Patient Home Medication List Home Medication List Reviewed: Yes Cetirizine HCl (Zyrtec) 10 Mg Tablet, 10 MG PO DAILY, (Reported) Entered as Reported by: TRISTEN ZUNIGA on 01/29/20 0746 Esomeprazole Magnesium (Nexium) 40 Mg Cap, 40 MG PO DAILY PRN for HEARTBURN, (Reported) Entered as Reported by: TRISTEN ZUNIGA on 01/29/20 0746 Pantoprazole Sodium (Protonix) 40 Mg Tablet.dr, 40 MG PO DAILY Prescribed by: MARIBETH STUBBS on 02/03/20 1005 Review of Systems Review of Systems Constitutional: no symptoms reported Eyes: No Symptoms Reported Ears, Nose, Mouth, Throat: no symptoms reported Respiratory: no symptoms reported Cardiovascular: no symptoms reported Gastrointestinal: no symptoms reported Skin: see HPI Psychiatric/Neurological: See HPI Past Ynmwoqb-Bhtqcr-Evuuyh Hx Patient Social History Tobacco Use?: No Substance use?: No Alcohol Use?: No Pt feels they are or have been: No Seasonal Allergies Seasonal Allergies: Yes Past Medical History Surgery/Hospitalization HX: DENIES MEDICAL HX Surgeries: Yes (hydrocele/hernia repair as an infant) Appendectomy Respiratory: No Cardiac: No Neurological: No Genitourinary: No Gastrointestinal: Yes Gastroesophageal Reflux, Fields's Esophagus, Hiatal Hernia Musculoskeletal: No Endocrine: No HEENT: No Cancer: No Psychosocial: No Integumentary: No Blood Disorders: No Physical Exam Vital Signs Vital Signs - First Documented 08/04/22 12:15 Temp 36.8 Pulse 69 Resp 18 B/P (MAP) 175/133 (147) Pulse Ox 98 Capillary Refill : Less Than 3 Seconds Height, Weight, BMI Height: 6'2.00" Weight: 200lbs. 0.0oz. 90.622086et; 24.00 BMI Method:Stated General Appearance: WD/WN, no apparent distress HEENT: PERRL/EOMI, normal ENT inspection, TMs normal, pharynx normal Neck: non-tender, full range of motion, supple, normal inspection Cardiovascular: regular rate, rhythm Respiratory: chest non-tender, lungs clear, normal breath sounds, no respiratory distress, no accessory muscle use Gastrointestinal: normal bowel sounds, non tender Extremities: normal range of motion, non-tender 3 cm laceration noted to the right parieto-occipital scalp Giuseppe Coma Score Best Eye Response: (4) Open Spontaneously Best Verbal Response: (5) Oriented Best Motor Response: (6) Obeys Commands Couch Total: 15 Procedures/Interventions Other Wound Location right parieto-occipital scalp Wound Length (cm): 3 Wound's Depth, Shape: superficial Wound Explored: clean Irrigated w/ Saline (ccs): 100 Staple Repair: Stapler 35W Number of Sutures: 4 (lucia) Layer Closure?: 1 Wound anesthetized with let gel Progress/Results/Core Measures Results/Orders My Orders Orders - INDY CORTES APRN Let Solution (Let Solution) (08/04/22 12:45) Dipht,Pertuss(Acell),Tet Adult (Boostrix (08/04/22 13:00) Dipht,Pertuss(Acell),Tet Adult (Boostrix (08/04/22 12:51) Medications Given in ED Current Medications Medications Dose Ordered Sig/Inocencia Route Start Time Stop Time Status Last Admin Dose Admin Diphtheria/ Tetanus/Acell Pertussis 0.5 ml STK-MED ONCE IM 08/04/22 12:51 08/04/22 12:55 DC 08/04/22 12:56 0.5 ML Tetracaine/ Epinephrine/ Lidocaine 3 ml ONCE ONCE TOP 08/04/22 12:45 08/04/22 12:46 DC 08/04/22 12:54 3 ML Vital Signs/I&O 08/04/22 08/04/22 12:15 13:51 Temp 36.8 Pulse 69 69 Resp 18 18 B/P (MAP) 175/133 (147) 133/82 Pulse Ox 98 98 Blood Pressure Mean: 147 Progress Progress Note : Progress Note Patient is nontoxic and well-hydrated on exam. No focal neurologic deficits appreciated. Patient is awake alert and oriented answers questions appropriately. Laceration is hemostatic. Patient does not meet criteria for needing cross-sectional imaging of the head at this time. He is neurologically appropriate and there is no deformity noted in the area of the injury. The laceration was repaired as noted separately. Patient tolerated well. Tetanus was updated. Wound care was discussed. Follow-up with PCP for staple removal in 5 to 7 days. Return precautions for urgent symptomology discussed. Patient verbalized understanding. Departure Impression Primary Impression: Scalp laceration Qualified Codes: S01.01XA - Laceration without foreign body of scalp, initial encounter Disposition: HOME, SELF-CARE Condition: Stable Departure-Patient Inst. Decision time for Depature: 13:45 Referrals: MIGUEL GROVER MD (PCP/Family) Primary Care Physician Patient Instructions: Laceration Repair With [place] [facility] Add. Discharge Instructions: Your lucia are ready to be removed in 5 to 7 days. You may see your regular doctor, present to an urgent care, or return to the emergency department to have these removed. All discharge instructions reviewed with patient and/or family. Voiced understanding. INDY CORTES APRN Aug 04, 2022 13:10
[2022-08-04 13:51] VITALS: BP 133/82
== END 2022-08-04 13:52 | disposition home or self-care (01) ==
LOC: EDUNIT# 12:13 → ER 12:16
DX: S01.01XA Laceration without foreign body of scalp, initial encounter (principal); Z28.310 Unvaccinated for COVID-19; Z23 Encounter for immunization; W22.8XXA Striking against or struck by other objects, initial encounter
CPT/HCPCS: 12002; 90715

== ENCOUNTER → 2023-05-07 | Outpatient (CLI) | payer BC | LOC: LAB 12:26 | PROVIDERS: ATTEND Nurse Practitioner Family | DX: R22.32 Localized swelling, mass and lump, left upper limb (principal) | CPT/HCPCS: 36415; 85379 ==